=== PATIENT | male | born 2000 | race Caucasian/White ===

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

== ENCOUNTER 2022-03-24 21:03 | Emergency (ER) | payer OTHER ==
[~2022-03-24] VITALS: Ht 182.9 cm; Wt 96.7 kg
== END 2022-03-25 00:03 | disposition home or self-care (01) ==
LOC: ER 21:03
DX: M24.411 Recurrent dislocation, right shoulder (principal)
CPT/HCPCS: 73030; J2704; J3010; J7030

== ENCOUNTER 2022-09-12 11:53 | Emergency (ER) | payer OTHER ==
[~2022-09-12] VITALS: Ht 185.4 cm; Wt 93.0 kg
[2022-09-12 12:04] VITALS: BP 135/73
[2022-09-12] MEDS ORDERED: Cipro500 MG PO (12:28)
== END 2022-09-12 12:56 | disposition home or self-care (01) ==
LOC: ER 11:53
DX: S91.331A Puncture wound without foreign body, right foot, initial encounter (principal); W22.8XXA Striking against or struck by other objects, initial encounter; Z23 Encounter for immunization; J45.909 Unspecified asthma, uncomplicated
CPT/HCPCS: 90714

== ENCOUNTER 2022-12-23 20:01 | Emergency (ER) | payer OTHER ==
[~2022-12-23] VITALS: Ht 185.4 cm; Wt 92.1 kg
[~2022-12-23 20:01] MED LIST changes: +Cipro500 MG PO
[2022-12-23 20:11] VITALS: BP 136/71
== END 2022-12-23 21:20 | disposition home or self-care (01) ==
LOC: ER 20:01
DX: S93.402A Sprain of unspecified ligament of left ankle, initial encounter (principal); J45.909 Unspecified asthma, uncomplicated; W22.8XXA Striking against or struck by other objects, initial encounter
CPT/HCPCS: 73610; 99283-25